=== PATIENT | male | born 1990 | race Caucasian/White ===

== ENCOUNTER → 2021-01-03 09:40 | Outpatient (BNVA) | payer OTHER, SELFPAY | PROVIDERS: Visit Provider Nurse Practitioner Family | DX: Z20.822 Contact with and (suspected) exposure to COVID-19 (principal) | CPT/HCPCS: 87635 ==

== ENCOUNTER 2023-01-05 06:42 | Emergency (ER) | payer SELFPAY ==
[2023-01-05] VITALS (8 sets, daily range): BP systolic 123–150; BP diastolic 68–110; PULSE 87–100; RESP 12–19; TEMP 36.8; O2SAT 93–98; BMI 29.9
--- NOTE | 2023-01-05 07:07 | ECG_ITS ---
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 Measurements Intervals [place] Rate: 93 P: 41 SD: 135 QRS: 17 QRSD: 74 T: 29 QT: 343 QTc: 427 Interpretive Statements SINUS RHYTHM MODERATE VOLTAGE CRITERIA FOR LVH, CONSIDER NORMAL VARIANT [MEETS CRITERIA IN ONE OF: R(aVL), S(V1), R(V5), R(V5/V6)+S(V1)] No previous ECG available for comparison Electronically Signed On 01-05-2023 12:56:00 CDT by Jaime Rossi M.D. [id number]
--- NOTE | 2023-01-05 07:12 | W.ED.SOB ---
HPI - SOB/Dyspnea General: Chief Complaint: Shortness of Breath/Dyspnea Stated Complaint: sob, cough Time Seen by Provider: 01/05/23 07:05 History of Present Illness: HPI Narrative: Patient presents to the ER with complaints of chest pain. Patient is also been having chest congestion and cough. Patient says he has had acid reflux in the past this feels similar but a lot worse. Patient states he is coughing up a lot of mucus and when he lays down he feels like he is drowning. Patient is currently pain-free but still feels really restless and short of breath. Review of Systems General: Reports: 10 or more systems reviewed and unremarkable except in HPI and below Physical Exam Const: COMMON NORMALS: no acute distress, average body habitus, patient oriented x3, no limitations, healthy appearing and alert HENMT: COMMON NORMALS: normocephalic, atraumatic, hearing grossly normal bilaterally, external ears normal, Normal nasal mucous membranes and turbinates present and oropharynx normal HEAD & SCALP: normocephalic and atraumatic NOSE: Normal nasal mucous membranes and turbinates present EXTERNAL EAR: Yes external ears normal Neck/C-Spine: COMMON NORMALS: full ROM, no lymphadenopathy, supple, no meningeal signs, no JVD and Thyroid normal THYROID: Thyroid normal Chest: COMMONS NORMALS: normal inspection of the chest and normal palpation of entire chest wall Resp: COMMON NORMALS: normal respiratory effort, No retractions, No use of accessory muscles and clear to auscultation bilaterally AUSCULTATION: clear to auscultation bilaterally Cardio: COMMON NORMALS: no JVD, regular rate, regular rhythm, S1 normal heart sound present, S2 normal heart sound present, No gallops present (Cardio), No clicks present (Cardio) and No murmurs present (Cardio) RATE: regular rate RHYTHM: regular rhythm HEART SOUNDS: S1 normal heart sound present and S2 normal heart sound present GI: COMMON NORMALS: Normal to inspection, nondistended, normoactive bowel sounds present, Soft to palpation, non-tender, No hepatosplenomegaly present and no masses PALPATION: Yes Soft to palpation and Yes No hepatosplenomegaly present Neuro: COMMON NORMALS: patient oriented x3 SENSORIUM/ORIENTATION: Yes alert MENINGEAL SIGNS: Yes no meningeal signs Course Vital Signs: Vital signs: Vital Signs Temperature 98.3 F 01/05/23 06:55 Pulse Rate 93 01/05/23 10:38 Respiratory Rate 16 01/05/23 10:38 Blood Pressure 138/103 01/05/23 10:38 Pulse Oximetry 93 01/05/23 10:38 Oxygen Delivery Me thod Room Air 01/05/23 10:38 MDM - SOB/Dyspnea Medical Decision Making Patient presents to the ER with complaints of worsening shortness of breath severe chest congestion and pain when takes a big deep breath. Physical exam was performed lab work was obtained chest x-ray was benign as well as troponins. Given Toradol and Zofran in the ER which seemed to help. Labs were discussed with patient and it was thought that patient had more pleuritic type chest pain patient be discharged home on a steroid and is to follow-up with his PCP in approximately 7 to 10 days. Differential Diagnosis Unlikely acute exacerbation of chronic obstructive airways disease, congestive heart failure, community acquired pneumonia, asthma with exacerbation or pulmonary embolism Medical Records I reviewed the patient's medical records. Lab Data I reviewed the patient's lab results. 01/05/23 07:40 01/05/23 07:40 Labs/Radiology: Radiology Impressions Chest X-Ray 01/05/23 07:21 IMPRESSION: No acute cardiopulmonary abnormality. Laboratory Results WBC 8.5 10^3/uL (4.0-10.0) 01/05/23 07:40 RBC 5.31 10^6/uL (4.1-5.3) H 01/05/23 07:40 Hgb 15.1 g/dL (11.7-16.6) 01/05/23 07:40 Hct 46.1 % (42.0-52.0) 01/05/23 07:40 MCV 86.8 fl (80-94) 01/05/23 07:40 MCH 28.4 pg (28.0-34.0) 01/05/23 07:40 MCHC 32.8 g/dL (30.0-36.0) 01/05/23 07:40 RDW 12.7 % (12.1-15.1) 01/05/23 07:40 Plt Count 400 10^3/cmm (130-400) 01/05/23 07:40 MPV 9.2 fL (7.4-10.4) 01/05/23 07:40 Neut % (Auto) 63.0 % 01/05/23 07:40 Lymph % (Auto) 26.9 % 01/05/23 07:40 [place] % (Auto) 8.0 % 01/05/23 07:40 Eos % (Auto) 1.1 % 01/05/23 07:40 Baso % (Auto) 0.6 % 01/05/23 07:40 Neut # (Auto) 5.36 10^3/uL (1.8-7.7) 01/05/23 07:40 Lymph # (Auto) 2.3 10^3/uL (0.8-4.8) 01/05/23 07:40 [place] # (Auto) 0.7 10^3/uL (0.2-0.9) 01/05/23 07:40 Eos # (Auto) 0.1 10^3/uL (0.0-0.8) 01/05/23 07:40 Baso # (Auto) 0.1 10^3/uL (0.0-0.1) 01/05/23 07:40 Nucleated RBC % (auto) 0 % 01/05/23 07:40 Nucleated RBCs # 0.0 /100WBC 01/05/23 07:40 PT 13.80 SECONDS (12.1-14.9) 01/05/23 07:40 INR 1.03 (0.8-1.2) 01/05/23 07:40 Sodium 139 mmol/L (136-145) 01/05/23 07:40 Potassium 4.1 mmol/L (3.5-5.1) 01/05/23 07:40 Chloride 103 mmol/L (98-107) 01/05/23 07:40 Carbon Dioxide 26 mmol/L (22-29) 01/05/23 07:40 Anion Gap 14.1 (5-19) 01/05/23 07:40 BUN 13 mg/dL (6-20) 01/05/23 07:40 Creatinine 1.1 mg/dL (0.7-1.2) 01/05/23 07:40 GFR Calculation 77.6 mL/min (90-130) L 01/05/23 07:40 Glucose 115 mg/dL (65-115) 01/05/23 07:40 Calculated Osmolality 289 mOsm/kg (285-295) 01/05/23 07:40 Calcium 9.7 mg/dL (8.5-10.5) 01/05/23 07:40 Total Bilirubin 0.4 mg/dL (0.15-1.2) 01/05/23 07:40 AST 16 U/L (0-40) 01/05/23 07:40 ALT 26 U/L (0-41) 01/05/23 07:40 Alkaline Phosphatase 87 U/L (40-130) 01/05/23 07:40 Troponin T Baseline 6 ng/L (0-15) 01/05/23 07:40 Troponin T 120 Minute 8.88 ng/L (0-15) 01/05/23 09:34 Delta Troponin T 2.88 ABS# (0-10) 01/05/23 09:34 NT-Pro-B Natriuret Pep 36 pg/mL (0-125) 01/05/23 07:40 Total Protein 8.2 g/dL (6.6-8.7) 01/05/23 07:40 Albumin 4.5 g/dL (3.5-5.2) 01/05/23 07:40 Globulin 3.7 g/dL (1.3-4.6) 01/05/23 07:40 EKG Data EKG 1: I personally reviewed and interpreted this EKG as follows: EKG Interpretation Date: 01/05/23 EKG interpretation time: 07:07 Prior EKG tracings: not available for review Interpretation: EKG shows ventricular rate 93 bpm, MD interval 135, QRS duration 74, QTc 393, sinus rhythm, LVH, no ST-T wave changes EKG 2: I personally reviewed and interpreted this EKG as follows: EKG Interpretation Date: 01/05/23 EKG interpretation time: 09:03 Prior EKG tracings: available for review Interpretation: EKG shows ventricular rate 85 beats MD interval 140, QRS duration 82, QTc of 406 sinus rhythm, no ST-T wave change Discharge Plan Discharge Patient Disposition: Home Clinical Impression: Chest pain, pleuritic Condition: Stable Prescriptions: New prednisone 50 mg tablet 50 mg PO DAILY 5 Days Qty: 5 0RF No Action aspirin 325 mg Tablet 325 mg PO Q6H PRN (Reason: Headache) Discharge Orders: Discharge ED (Routine); Ordered 01/05/23 Ordered By: Mio Escalante Patient Instructions: Pleurisy (ED) Activity Restrictions/Additional Instructions: Please take all your medicine as directed. Please follow-up with your family practice doctor in approximately 7 days or sooner as needed. If your pain worsens or changes feel free to come back to the ER for further evaluation and treatment. Coding Level of Care Code ED Senior Data Warehouse Architect for Maurilio Aguilar
--- NOTE | 2023-01-05 07:21 | XRR_ITS ---
PROCEDURE INFORMATION: Exam: XR Chest Exam date and time: 01/05/2023 7:44 AM Age: 32 years old Clinical indication: Pain; Chest pressure; Additional info: Chest pain TECHNIQUE: Imaging protocol: Radiologic exam of the chest. Views: 1 view. COMPARISON: CR XR chest 1V [id number] 03/24/2017 9:23 AM FINDINGS: Lungs: No focal airspace disease. Pleural spaces: Unremarkable. No pleural effusion. No pneumothorax. Heart/Mediastinum: Cardiomediastinal silhouette is within normal limits. Bones/joints: Unremarkable. XR/XR chest 1V portable [id number] IMPRESSION: No acute cardiopulmonary abnormality.
[2023-01-05 07:55] LABS: Basophils # 0.1 10^3/uL (0.0-0.1); Basophils % 0.6 %; Eosinophils # 0.1 10^3/uL (0.0-0.8); Eosinophils % 1.1 %; Hematocrit 46.1 % (42.0-52.0); Hemoglobin 15.1 g/dL (11.7-16.6); Lymphocytes # 2.3 10^3/uL (0.8-4.8); Lymphocytes % 26.9 %; Mean Corpuscular HGB Conc 32.8 g/dL (30.0-36.0); Mean Corpuscular Hemoglobin 28.4 pg (28.0-34.0); Mean Corpuscular Volume 86.8 fl (80-94); Mean Platelet Volume 9.2 fL (7.4-10.4); Monocytes # 0.7 10^3/uL (0.2-0.9); Neutrophils # 5.36 10^3/uL (1.8-7.7); Nucleated Red Blood Cells % 0 %; Platelet Count 400 10^3/cmm (130-400); Red Blood Count 5.31 10^6/uL (4.1-5.3); Red Cell Distribution Width 12.7 % (12.1-15.1); White Blood Count 8.5 10^3/uL (4.0-10.0)
[2023-01-05 08:17] LABS: Troponin(5th) Baseline 6 ng/L (0-15)
[2023-01-05 08:22] LABS: Alanine Aminotransferase 26 U/L (0-41); Albumin Level 4.5 g/dL (3.5-5.2); Alkaline Phosphatase 87 U/L (40-130); Anion Gap 14.1 (5-19); Aspartate Amino Transferase 16 U/L (0-40); Blood Urea Nitrogen 13 mg/dL (6-20); Calcium 9.7 mg/dL (8.5-10.5); Carbon Dioxide 26 mmol/L (22-29); Chloride 103 mmol/L (98-107); Globulin 3.7 g/dL (1.3-4.6); Glomerular Filtration Rate 77.6 mL/min (90-130); Glucose 115 mg/dL (65-115); NT Pro B Type Natriuretic Pept 36 pg/mL (0-125); Osmolality Calculated 289 mOsm/kg (285-295); Potassium 4.1 mmol/L (3.5-5.1); Sodium 139 mmol/L (136-145); Total Bilirubin 0.4 mg/dL (0.15-1.2); Total Protein 8.2 g/dL (6.6-8.7)
[2023-01-05 08:34] LABS: INR 1.03 (0.8-1.2)
--- NOTE | 2023-01-05 09:03 | ECG_ITS ---
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 Measurements Intervals [place] Rate: 85 P: 46 SD: 140 QRS: 19 QRSD: 82 T: 17 QT: 364 QTc: 434 Interpretive Statements SINUS RHYTHM POSSIBLE LEFT ATRIAL ENLARGEMENT [-0.1mV P-WAVE IN V1/V2] POSSIBLE LEFT VENTRICULAR HYPERTROPHY [VOLTAGE CRITERIA PLUS LAE OR QRS WIDENING] Compared to ECG 01/05/2023 07:07:08 No significant changes Electronically Signed On 01-05-2023 12:59:02 CDT by Jaime Rossi M.D. [id number]
[2023-01-05 10:08] LABS: Troponin 5 2HR 8.88 ng/L (0-15)
[2023-01-05] MEDS: ondansetron 2 mg/ML SDV 2 mL 4 MG IVP (10:29)
[2023-01-05] MEDS: ketorolac 30 mg/mL INJ IVP (10:33)
[2023-01-05 10:36] LABS: Troponin 5 2HR Delta 2.88 ABS# (0-10)
[2023-01-05] MEDS: aluminum-mag hydrox-simethicon 30 ML, sucralfate oral liq 1 GM PO (10:37)
== END 2023-01-05 11:33 | disposition home or self-care (01) ==
PROVIDERS: Emergency Provider Emergency Medicine
DX: R09.1 Pleurisy (principal)
CPT/HCPCS: 71045; 80053; 83880; 84484; 85025; 85610; 93005; 96374; 96375; 99285; J1885; J2405